=== PATIENT | male | born 1985 | race Caucasian/White ===

== ENCOUNTER → 2017-12-18 | Outpatient (CLI) | payer OTHER ==
[~2017-12-18] MED LIST: DILAUDID 2MG TAB2 MG PO; LEVAQUIN 250MG250 MG PO; LEVAQUIN750 MG PO; LORTAB 5/500 501 TAB PO; MACROBID100 M1 PO; NO HOME MEDICATIONS; NORCO 325 MG-51 TAB PO; ZOFRAN 4MG T4 MG/TAB PO; antibiotic
== END ==
LOC: COL.RAD 14:00
DX: M51.17 Intervertebral disc disorders with radiculopathy, lumbosacral region (principal); M99.73 Connective tissue and disc stenosis of intervertebral foramina of lumbar region